=== PATIENT | male | born 1980 | race Caucasian/White ===

== ENCOUNTER 2023-12-18 11:56 | Inpatient (IN) | payer OTHER ==
[2023-12-18 12:36] VITALS: BMI 21.2
[2023-12-18] MEDS ORDERED: guaiFENesin 600 MG TABLET.ER (FP) PO PRN (14:14)
[2023-12-18] MEDS ORDERED: DICYCLOMINE HCL 10 MG CAPSULE PO PRN (14:14)
[2023-12-18] MEDS ORDERED: MAG HYDROX/AL HYDROX/SIMETH 30 ML UNIT-DOSE CUP PO PRN (14:14)
[2023-12-18] MEDS ORDERED: BISMUTH SUBSALICYLATE 262 MG/15 ML BTL PO PRN (14:14)
[2023-12-18] MEDS ORDERED: BENZONATATE 200 MG CAPSULE PO PRN (14:14)
[2023-12-18] MEDS ORDERED: ONDANSETRON *ODT* 4 MG TABLET SL PRN (14:14)
[2023-12-18] MEDS ORDERED: LOPERAMIDE HCL 2 MG CAPSULE PO PRN (14:14)
[2023-12-18] MEDS: NICOTINE POLACRILEX 2 MG GUM BUC PRN (17:24)
[2023-12-18] MEDS: THIAMINE 100 MG TABLET PO SCH (22:26)
[2023-12-18] MEDS: MELATONIN 5 MG TABLETS PO SCH (22:27)
[2023-12-18] MEDS: hydrOXYzine PAMOATE 25 MG CAPSULE (FP) PO PRN (22:28)
[2023-12-19] MEDS ORDERED: chlordiazePOXIDE HCL 25 MG CAPSULE PO PRN (08:12)
[2023-12-19] MEDS: PRENATAL VITAMINS W/ FOLIC ACID TABLET (FP) PO SCH (10:46)
[2023-12-19] MEDS: METHOCARBAMOL 500 MG TABLET PO PRN (10:46)
[2023-12-19] MEDS: chlordiazePOXIDE HCL 25 MG CAPSULE PO SCH (10:47)
[2023-12-19 14:38] LABS: POTASSIUM 3.4 mmol/L (3.5-5.1)
[2023-12-19 14:39] LABS: CALCIUM 9.3 mg/dL (8.5-10.1)
[2023-12-19 14:40] LABS: ALBUMIN 3.7 g/dl (3.4-5.0); BLOOD UREA NITROGEN 7.2 mg/dL (7-18)
[2023-12-19 14:43] LABS: CREATININE 0.9 mg/dL (0.55-1.3)
[2023-12-19 14:45] LABS: BILIRUBIN,TOTAL 0.4 mg/dL (0.2-1); TOT PROT 7.1 g/dl (6.4-8.2)
[2023-12-19 14:59] LABS: HEMATOCRIT 41.3 % (35.4-49); MCH 34.8 pg (25.7-33.7); MEAN CELL VOLUME 102.3 fl (80-96); MEAN PLT VOLUME 7.8 fl (7.5-11.1); PLATELET COUNT 248 10^3/uL (134-434); RBC 4.03 M/mm3 (4.00-5.60); RDW 14.5 % (11.9-15.9); WHITE BLOOD COUNT 4.9 K/mm3 (4.0-10.0)
[2023-12-19] MEDS: MAGNESIUM HYDROX 2400MG/30ML ORAL SUSPENSION 30 ML CUP PO PRN (17:28)
[2023-12-20] MEDS: POTASSIUM CHLORIDE ORAL LIQUID 20 MEQ/15 ML PO ONE (12:09)
[2023-12-20] MEDS: PENICILLIN G BENZATHINE 2,400,000 UNIT/4 ML PFS IM ONE (12:13)
[2023-12-20] MEDS: POLYETHYLENE GLYCOL (HEALTHYLAX) 3350 17 GM PACKET PO PRN (19:56)
[2023-12-20] MEDS: POTASSIUM CHLORIDE ORAL LIQUID 20 MEQ/15 ML PO SCH (22:42)
[2023-12-21] MEDS: chlordiazePOXIDE HCL 25 MG CAPSULE PO SCH (05:43)
[2023-12-21] MEDS: IBUPROFEN 600 MG TABLET (FP) PO PRN (16:42)
[2023-12-22] MEDS ORDERED: chlordiazePOXIDE HCL 10 MG CAPSULE PO PRN
[2023-12-22] MEDS: chlordiazePOXIDE HCL 10 MG CAPSULE PO SCH (05:47)
[2023-12-22] MEDS: NICOTINE POLACRILEX 2 MG LOZENGE BC PRN (11:13)
[2023-12-23] MEDS: chlordiazePOXIDE HCL 10 MG CAPSULE PO SCH (05:45)
[2023-12-23] MEDS: BENZOCAINE/MENTHOL (CHLORASEPTIC ) LOZENGE MM PRN (10:13)
[2023-12-23] MEDS: IBUPROFEN 400 MG TABLET (FP) PO PRN (17:40)
[2023-12-24] MEDS: ACETAMINOPHEN 325 MG TABLET (FP) PO PRN (05:46)
[2023-12-24] MEDS: chlordiazePOXIDE HCL 10 MG CAPSULE PO ONE (05:46)
[2023-12-24] MEDS: PENICILLIN V POTASSIUM 500 MG TABLET PO SCH (12:11)
[2023-12-25 12:30] VITALS: BP 109/74; PULSE 80; RESP 17; TEMP 98.4
== END 2023-12-25 15:28 | disposition other institution (70) | DRG 775 ==
LOC: YASAS 11:56 → Y6N 14:33
PROVIDERS: ADMIT Allergy & Immunology; ATTEND Surgery
PROC: HZ2ZZZZ Detoxification Services for Substance Abuse Treatment (ICD-10-PCS; principal; 2023-12-18)
DX: F10.230 Alcohol dependence with withdrawal, uncomplicated (principal); F12.20 Cannabis dependence, uncomplicated; F17.210 Nicotine dependence, cigarettes, uncomplicated; A53.9 Syphilis, unspecified; E87.6 Hypokalemia
CPT/HCPCS: 0241U-QW; 36415; 71046-TC-FY; 80053; 80305; 80307; 85027; 86593; 86780; 87635; 87811; 93005; 93010